=== PATIENT | female | born 1960 | race Hispanic/Latino ===

== ENCOUNTER 2017-12-26 13:39 | Outpatient (CLI) | payer OTHER ==
--- NOTE | 2018-01-03 14:42 | MMO ---
BILATERAL DIGITAL SCREENING MAMMOGRAMS: HISTORY: A 57-year-old female who presents for digital screening mammography. COMPARISON: 06/27/2015, 08/09/2010. This patient's mammogram is interpreted with the assistance of computer-aided detection. Scattered fibroglandular changes are noted bilaterally. There is a circumscribed round mass approxim ately 0.5 cm in the posterior aspect of the lateral portion of the right breast. Stable nodular dens ities are noted in the left breast. No other significant acute process. IMPRESSION: BI-RADS category 0, incomplete. Needs additional imaging evaluation. Right unilateral diagnostic ma mmogram to include 3D spot images of the right breast in CC and MLO projection and full field 3D medi olateral view. In addition, an ultrasound should be scheduled and performed if needed. BIRADS 0: Incomplete: Need Additional Imaging Evaluation and/or Prior Mammograms for Comparison POS: AMAURY
== END 2017-12-26 13:40 | disposition home or self-care (01) ==
LOC: SCSMAMMO 13:39
PROVIDERS: ATTEND Internal Medicine
DX: Z12.31 Encounter for screening mammogram for malignant neoplasm of breast (principal)
CPT/HCPCS: 77067

== ENCOUNTER 2018-01-21 14:27 | Outpatient (CLI) | payer OTHER ==
--- NOTE | 2018-01-21 17:02 | ULT ---
RIGHT BREAST ULTRASOUND: HISTORY: Abnormal mammogram. CORRELATION: Mammograms from today and from 12/26/2017. FINDINGS: Sonographic evaluation of the right upper outer breast demonstrates two hypoechoic, nonshadowing nodu les with an echogenic hilum demonstrating flow between the 11 and 12 o'clock positions, measuring 3 a nd 1.2 mm, respectively, consistent with intramammary lymph nodes. The larger one corresponds to the finding on mammogram. IMPRESSION: BI-RADS category 2-Benign findings. Return to annual mammographic screening. POS: OFF
== END 2018-01-21 14:28 | disposition home or self-care (01) ==
LOC: BICMAMMO 14:27
PROVIDERS: ATTEND Internal Medicine
DX: N63.11 Unspecified lump in the right breast, upper outer quadrant (principal)
CPT/HCPCS: G0279